=== PATIENT | female | born 2000 | race Caucasian/White ===

== ENCOUNTER 2022-05-12 18:30 | Inpatient (IN) | payer BC, OTHER ==
[2022-05-12 19:09] VITALS: BMI 27.1
[2022-05-12] MEDS ORDERED: Carboprost 250 MCG/ML AMP IM PRN (23:02)
[2022-05-12] MEDS ORDERED: Ibuprofen 800 MG TAB PO PRN (23:02)
[2022-05-12] MEDS ORDERED: hydrALAZINE 20 MG/ML VIAL SLOW IVP PRN (23:02)
[2022-05-12] MEDS ORDERED: Diphenoxylate HCl/Atropine Tablet PO PRN (23:02)
[2022-05-12] MEDS ORDERED: Acetaminophen 500 MG TAB PO PRN (23:02)
[2022-05-12] MEDS ORDERED: Promethazine HCl 25 MG/ML VIAL IM PRN (23:02)
[2022-05-12] MEDS ORDERED: HYDROcodone/Acetaminophen 5/325 mg Tablet PO PRN ×2 (23:02)
[2022-05-12] MEDS ORDERED: Butorphanol Tartrate 1 MG/ML VIAL SLOW IVP PRN (23:02)
[2022-05-12] MEDS ORDERED: Ondansetron PF 4 MG/2 ML Vial IVP PRN (23:02)
[2022-05-12] MEDS ORDERED: Methylergonovine 0.2 MG/ML VIAL IM PRN (23:02)
[2022-05-12] MEDS ORDERED: Lidocaine 1% (PF) 30 ML VIAL SC PRN (23:02)
[2022-05-12] MEDS ORDERED: Misoprostol 200 MCG TAB PR PRN (23:02)
[2022-05-12] MEDS ORDERED: Lactated Ringer's 1,000 ML IV SCH (23:15)
[2022-05-12] MEDS ORDERED: NS w/ Oxytocin 30 units 500 ML IV SCH (23:15)
[2022-05-12 23:41] LABS: Hemoglobin 10.5 g/dL (12.0-15.5); Mean Corpuscular HGB CONC 32.2 g/dL (32.0-36.0); Mean Corpuscular Hemoglobin 25.7 pg (27.0-33.0); Mean Corpuscular Volume 79.9 fl (81.6-98.3); Mean Platelet Volume 10.3 fl (7.4-10.4); Platelet Count 243 10x3/uL (150-450); RBC Distribution Width 19.9 % (11.5-14.5); Red Blood Cell (RBC) Count 4.08 10x6/uL (3.90-5.03); White Blood Cell (WBC) Count 11.2 10x3/uL (3.5-10.5)
[2022-05-13 00:03] LABS: HBSAg Index 0.26 S/CO (0-0.99); Hep B Surf Ag Non-Reactive S/CO (NonReactive); Syphilis Antibody Nonreactive (Nonreactive); Syphilis Antibody Index 0.02 S/CO (<1.00 Non-Reactive)
[2022-05-13] MEDS ORDERED: Ibuprofen 800 MG TAB PO PRN (00:30)
[2022-05-13] MEDS ORDERED: Bisacodyl 10 MG SUPP PR PRN (03:51)
[2022-05-13] MEDS ORDERED: Benzocaine-Menthol 82.5 ML CAN TOP PRN (03:51)
[2022-05-13] MEDS ORDERED: Misoprostol 200 MCG TAB VAG PRN (03:51)
[2022-05-13] MEDS ORDERED: Lanolin Ointment 7 GM TUBE TOP PRN (03:51)
[2022-05-13] MEDS ORDERED: hydrALAZINE 20 MG/ML VIAL SLOW IVP PRN (03:51)
[2022-05-13] MEDS ORDERED: HYDROcodone/Acetaminophen 5/325 mg Tablet PO PRN ×2 (03:51)
[2022-05-13] MEDS ORDERED: Ondansetron PF 4 MG/2 ML Vial IVP PRN (03:51)
[2022-05-13] MEDS ORDERED: Boostrix 0.5 ML (Tdap) VIAL (>/=7 yrs of age) IM ONE (03:51)
[2022-05-13] MEDS ORDERED: Milk Of Magnesia 30 ML UDCUP PO PRN (03:51)
[2022-05-13] MEDS ORDERED: NS w/ Oxytocin 30 units 500 ML IV SCH (04:00)
[2022-05-13] MEDS: Prenatal Vitamin 1 TAB PO SCH (08:00)
[2022-05-13] MEDS: Ibuprofen 800 MG TAB PO SCH ×3 (08:00→21:48)
[2022-05-13] MEDS: Docusate 100 MG CAP PO SCH ×2 (08:00→21:48)
[2022-05-13] MEDS: Ferrous Sulfate 325 MG TAB PO SCH (23:02)
[2022-05-14] MEDS: Ibuprofen 800 MG TAB PO SCH (05:46)
[2022-05-14] MEDS: Ferrous Sulfate 325 MG TAB PO SCH (15:56)
[2022-05-14] MEDS: Docusate 100 MG CAP PO SCH (15:56)
[2022-05-14] MEDS: Prenatal Vitamin 1 TAB PO SCH (15:57)
[2022-05-14 16:19] VITALS: BP 115/60; TEMP 97.9
== END 2022-05-14 14:00 | disposition home or self-care (01) | DRG 807 ==
LOC: CSHLD/OP 18:30 → CSHLD 20:45 → CSHPP 05-13 04:04
PROVIDERS: ADMIT Obstetrics & Gynecology; ATTEND Obstetrics & Gynecology
PROC: 10E0XZZ Delivery of Products of Conception, External Approach (ICD-10-PCS; principal; 2022-05-12)
DX: O80 Encounter for full-term uncomplicated delivery (principal); Z37.0 Single live birth; Z3A.40 40 weeks gestation of pregnancy
CPT/HCPCS: 36415; 85027; 86780; 86850; 86900; 86901; 87340; 99285; J2590